=== PATIENT | male | born 1955 | race Caucasian/White ===

== ENCOUNTER 2016-11-30 12:18 | Inpatient (IN) | payer OTHER ==
[2016-11-30 14:10] VITALS: BMI 21.8
--- NOTE | 2016-11-30 14:46 | HP ---
CIWA Score - CIWA Score Nausea/Vomitin Muscle Tremors: 3 Anxiety: 3 Agitation: 3 Paroxysmal Sweats: 2 Orientation: 0-Oriented Tacttile Disturbances: 2-Mild Itch/Numbness/Burn Auditory Disturbances: 2-Mild Harshness/Frighten Visual Disturbances: 2-Mild Sensitivity Headache: 2-Mild CIWA-Ar Total Score: 22 Admission ROS BHS - HPI Chief Complaint: i need help to stop drinking alcohol Allergies/Adverse Reactions: Allergies Allergy/AdvReac Type Severity Reaction Status Date / Time No Known Allergies Allergy Verified 11/30/16 14:10 History of Present Illness: this 61 years old male with alcohol dependence,seeking detox,last treatment 12/22 to 04/22/15 [facility] weight loss depression longest of sobriety 1 year basal cell carcinoma of scalp Exam Limitations: No Limitations - Ebola screening Have you traveled outside of the country in the last 21 days: No Have you had contact with anyone from an Ebola affected area: No Have you been sick,other than usual withdrawal symptoms: No Do you have a fever: No - Review of Systems Constitutional: Loss of Appetite, Malaise, Night Sweats, Changes in sleep, Weakness, Unintentional Wgt. Loss EENT: reports: Nose Congestion Respiratory: reports: No Symptoms reported Cardiac: reports: No Symptoms Reported GI: reports: Diarrhea, Nausea, Vomiting, Abdominal cramping : reports: No Symptoms Reported Musculoskeletal: reports: Back Pain, Muscle Pain Integumentary: reports: Dryness Neuro: reports: Headache, Tremors Endocrine: reports: No Symptoms Reported Hematology: reports: No Symptoms Reported Psychiatric: reports: No Sypmtoms Reported, Judgement Intact, Mood/Affect Appropiate, Orientated x3, Depressed Patient History - Patient Medical History Hx Anemia: No Hx Asthma: No Hx Chronic Obstructive Pulmonary Disease (COPD): No Hx Cancer: No Hx Cardiac Disorders: No Hx Congestive Heart Failure: No Hx Hypertension: No Hx Hypercholesterolemia: No Hx Pacemaker: No HX Cerebrovascular Accident: No Hx Seizures: No Hx Dementia: No Hx Diabetes: No Hx Gastrointestinal Disorders: No Hx Liver Disease: No Hx Genitourinary Disorders: No Hx Sexually Transmitted Disorders: No Hx Renal Disease (ESRD): No Hx Thyroid Disease: No Hx Human Immunodeficiency Virus (HIV): Yes (since 2001) Hx Hepatitis C: No Hx Depression: Yes (no med) Hx Suicide Attempt: No Hx Bipolar Disorder: No Hx Schizophrenia: No Other Medical History: no sucidal,no homicidal,basal cell carcinoma of scalp in 2015 follow dermat - Patient Surgical History Past Surgical History: Yes Hx Neurologic Surgery: No Hx Cataract Extraction: No Hx Cardiac Surgery: No Hx Lung Surgery: No Hx Breast Surgery: No Hx Breast Biopsy: No Hx Abdominal Surgery: No Hx Appendectomy: No Hx Cholecystectomy: No Hx Genitourinary Surgery: No Hx Section: No Hx Orthopedic Surgery: Yes (fx of right femur in 03/22 [facility]) Other Surgical History: fx of right mandible in 2004 - PPD History Previous Implant?: Yes Documented Results: Negative w/o proof Implanted On Prior [facility] Admission?: No Date: 04/19/15 PPD to be Administered?: Yes - Smoking Cessation Smoking history: Never smoked Have you smoked in the past 12 months: No Hx Chewing Tobacco Use: No Initiated information on smoking cessation: No - Substance & Tx. History Hx Alcohol Use: Yes Hx Substance Use: No Substance Use Type: Alcohol Hx Substance Use Treatment: Yes ([facility] 04/17/15 to 04/22/15) - Substances Abused Alcohol Route: Oral Frequency: Daily Amount used: 3 PINTS VODKA Age of first use: 14 Date of Last Use: 11/30/16 Family Disease History - Family Disease History Family Disease History: Other: Father (alcohol), Mother (alcohol) Admission Physical Exam S - Vital Signs Vital Signs: Vital Signs - 24 hr 11/30/16 14:00 Temperature 96.0 F L Pulse Rate 84 Respiratory 18 Rate Blood Pressure 131/73 - Physical General Appearance: Yes: Moderate Distress, Tremorous, Irritable, Sweating, Anxious HEENTM: Yes: Normal ENT Inspection, CHRIS, Pharynx Normal Respiratory: Yes: Lungs Clear, Normal Breath Sounds, No Respiratory Distress Neck: Yes: Within Normal Limits, Supple, Trachea in good position Breast: Yes: Within Normal Limits Cardiology: Yes: Within Normal Limits, Regular Rhythm, Regular Rate, S1, S2 Abdominal: Yes: Within Normal Limits, Normal Bowel Sounds, Non Tender, Flat, Soft Genitourinary: Yes: Within Normal Limits Back: Yes: Normal Inspection, Muscle Spasm Musculoskeletal: Yes: Back pain, Muscle Pain Extremities: Yes: Normal Range of Motion, Tremors Neurological: Yes: Within Normal Limits, Alert, Motor Strength 5/5 Integumentary: Yes: Dry Lymphatic: Yes: Within Normal Limits - Diagnostic (1) Alcohol dependence with uncomplicated withdrawal Current Visit: Yes Status: Acute (2) Depression Current Visit: No Status: Acute (3) Syncope Current Visit: No Status: Acute (4) Weight loss Current Visit: Yes Status: Chronic (5) Basal cell carcinoma of scalp Current Visit: No Status: Chronic (6) H/O basal cell carcinoma excision Current Visit: Yes Status: Chronic (7) HIV (human immunodeficiency virus infection) Current Visit: Yes Status: Chronic Cleared for Admission [facility] - Detox or Rehab [facility] Level of Care: Medically Managed Detox Regimen/Protocol: Librium [facility] Breath Alcohol Content Breath Alcohol Content: 0.092 Urine Drug Screen - Results Drug Screen Negative: No Urine Drug Screen Results: BZO-Benzodiazepines
[2016-11-30] MEDS ORDERED: P-EPHED 60MG/TRIPROLIDI 2.5MG TABLET PO PRN (15:06)
[2016-11-30] MEDS ORDERED: MENTHOL/PHENOL 1 EACH UD MM PRN (15:06)
[2016-11-30] MEDS ORDERED: ACETAMINOPHEN 325 MG TABLET (FP) PO PRN (15:06)
[2016-11-30] MEDS ORDERED: MAGNESIUM HYDROX 2400MG/30ML ORAL SUSPENSION 30 ML CUP PO PRN (15:06)
[2016-11-30] MEDS ORDERED: MAG HYDROX/AL HYDROX/SIMETH 30 ML UNIT-DOSE CUP PO PRN (15:06)
[2016-11-30] MEDS ORDERED: guaiFENesin/D-METHORPHAN HB 10 ML UNIT-DOSE CUPS PO PRN (15:06)
[2016-11-30] MEDS ORDERED: MAGNESIUM CITRATE 300 ML BOTTLE PO PRN (15:06)
[2016-11-30] MEDS ORDERED: LOPERAMIDE HCL 2 MG CAPSULE PO PRN (15:06)
[2016-11-30] MEDS ORDERED: IBUPROFEN 400 MG TABLET (FP) PO PRN (15:06)
[2016-11-30] MEDS ORDERED: chlordiazePOXIDE HCL 25 MG CAPSULE PO ONE (15:48)
[2016-11-30] MEDS: chlordiazePOXIDE HCL 25 MG CAPSULE PO SCH ×2 (17:25→22:15)
[2016-11-30] MEDS ORDERED: ONDANSETRON *ODT* 4 MG TABLET SL ONE (19:33)
[2016-11-30] MEDS: THIAMINE HCL 100 MG TABLET (FP) PO SCH (22:15)
[2016-11-30] MEDS: diphenhydrAMINE HCL 50 MG CAPSULE PO PRN (22:15)
[2016-11-30 22:28] LABS: URINE APPEARANCE SLCLOUDY; URINE BILIRUBIN NEGATIVE (NEGATIVE); URINE BLOOD NEGATIVE (NEGATIVE); URINE COLOR AMBER; URINE GLUCOSE (UA) NEGATIVE (NEGATIVE); URINE KETONE NEGATIVE (NEGATIVE); URINE NITRITE NEGATIVE (NEGATIVE); URINE PROTEIN 2+ (NEGATIVE); URINE UROBILINOGEN 4.0 E.U/dl mg/dL (0.2-1.0)
[2016-11-30 23:50] LABS: URINE BACTERIA FEW /hpf (NONE SEEN); URINE MUCUS 3+
[2016-12-01] MEDS: chlordiazePOXIDE HCL 25 MG CAPSULE PO SCH ×4 (06:08→22:18)
[2016-12-01 10:09] LABS: MCH 34.7 pg (25.7-33.7); MCHC 32.8 g/dl (32.0-35.9); MEAN CELL VOLUME 105.7 fl (80-96); MEAN PLT VOLUME 9.9 fl (7.5-11.1); PLATELET COUNT 96 K/MM3 (134-434); RDW 13.1 % (11.9-15.9); WHITE BLOOD COUNT 3.6 K/mm3 (4.0-10.0)
[2016-12-01 10:30] LABS: URINE LEUK ESTERASE Negative (NEGATIVE)
[2016-12-01] MEDS: RITONAVIR 100 MG TABLET PO SCH (10:31)
[2016-12-01] MEDS: PRENATAL VITAMINS W/ FOLIC ACID TABLET (FP) PO SCH (10:31)
[2016-12-01] MEDS: DARUNAVIR ETHANOLATE 800 MG TAB PO SCH (10:31)
[2016-12-01] MEDS: DAPSONE 100 MG TABLET PO SCH (10:31)
[2016-12-01] MEDS: EMTRICITABINE 200MG/TENOFOVIR 300MG PO SCH (10:32)
--- NOTE | 2016-12-01 10:46 | EKG ---
Test Reason : Blood Pressure : / mmHG Vent. Rate : 075 BPM Atrial Rate : 075 BPM P-R Int : 156 ms QRS Dur : 100 ms QT Int : 406 ms P-R-T Axes : 078 081 075 degrees QTc Int : 453 ms NORMAL SINUS RHYTHM NORMAL ECG NO PREVIOUS ECGS AVAILABLE Confirmed by ANDRES MARROQUIN MD ([id number]) on 12/01/2016 10:45:37 AM Referred By: Confirmed By:ANDRES MARROQUIN MD
--- NOTE | 2016-12-01 10:59 | PN ---
[facility] CIWA - CIWA Score Nausea/Vomitin-No Nausea/No Vomiting Muscle Tremors: 4-Moderate,w/Arms Extend Anxiety: 4-Mod. Anxious/Guarded Agitation: 4-Moderately Restless Paroxysmal Sweats: 1-Minimal Palms Moist Orientation: 0-Oriented Tacttile Disturbances: 3-Moderate Itch/Numb/Burn Auditory Disturbances: 0-None Visual Disturbances: 0-None Headache: 0-None Present CIWA-Ar Total Score: 16 BHS Progress Note (SOAP) Subjective: ANXIETY,SWEATS,TREMORS,INTERMITTENT SLEEP. Objective: 12/01/16 10:59 Vital Signs Temperature 97.8 F 12/01/16 09:20 Pulse Rate 63 12/01/16 09:20 Respiratory Rate 18 12/01/16 09:20 Blood Pressure 123/80 12/01/16 09:20 O2 Sat by Pulse Oximetry (%) Laboratory Last Values WBC 3.6 K/mm3 (4.0-10.0) L 12/01/16 06:00 RBC 3.74 M/mm3 (4.00-5.60) L 12/01/16 06:00 Hgb 13.0 GM/dL (11.7-16.9) 12/01/16 06:00 Hct 39.5 % (35.4-49) 12/01/16 06:00 MCV 105.7 fl (80-96) H 12/01/16 06:00 MCH 34.7 pg (25.7-33.7) H 12/01/16 06:00 MCHC 32.8 g/dl (32.0-35.9) 12/01/16 06:00 RDW 13.1 % (11.9-15.9) 12/01/16 06:00 Plt Count 96 K/MM3 (134-434) L D 12/01/16 06:00 MPV 9.9 fl (7.5-11.1) D 12/01/16 06:00 Sodium 140 mmol/L (136-145) 12/01/16 06:00 Potassium 3.6 mmol/L (3.5-5.1) 12/01/16 06:00 Chloride 102 mmol/L (98-107) 12/01/16 06:00 Urine Color [place] 11/30/16 22:10 Urine Appearance Slcloudy 11/30/16 22:10 Urine pH 7.0 (5.0-8.0) 11/30/16 22:10 Ur Specific [place] 1.020 (1.005-1.025) 11/30/16 22:10 Urine Protein 2+ (NEGATIVE) H 11/30/16 22:10 Urine Glucose (UA) Negative (NEGATIVE) 11/30/16 22:10 Urine Ketones Negative (NEGATIVE) 11/30/16 22:10 Urine Blood Negative (NEGATIVE) 11/30/16 22:10 Urine Nitrite Negative (NEGATIVE) 11/30/16 22:10 Urine Bilirubin Negative (NEGATIVE) 11/30/16 22:10 Urine Urobilinogen 4.0 e.u/dl mg/dL (0.2-1.0) 11/30/16 22:10 Ur Leukocyte Esterase Negative (NEGATIVE) 11/30/16 22:10 Urine RBC 3-6 /hpf (0-3) 11/30/16 22:10 Urine Bacteria Few /hpf (NONE SEEN) 11/30/16 22:10 Urine Mucus 3+ 11/30/16 22:10 Assessment: 12/01/16 10:59 WITHDRAWAL SX Plan: CONTINUE DETOX
--- NOTE | 2016-12-01 11:09 | CONSULT ---
[facility] Psychiatric Consult - Data Date of interview: 12/01/16 Admission source: [facility] Identifying data: This is 61 years old male with history of psychiatric hospitalizations, history of BD-2, intoxicated with Alcohol and Benzodiazepins Substance Abuse History: Urine Drug Screen Results: BZO-Benzodiazepines- Smoking Cessation. Smoking history: Never smoked. Have you smoked in the past 12 months: No. Hx Chewing Tobacco Use: No. Initiated information on smoking cessation: No. - Substance & Tx. History. Hx Alcohol Use: Yes. Hx Substance Use: No. Substance Use Type: Alcohol. Hx Substance Use Treatment: Yes ([facility] to 04/22/15). - Substances Abused. Alcohol. Route: Oral. Frequency : Daily. Amount used: 3 PINTS VODKA. Age of first use: 14. Date of Last Use: 11/30/16 Medical History: Syncope history, Weight loss history, HIV+, Basal Carcinoma History Psychiatric History: Patient reports history of depression and anxiety, reports recenmt psychiatric admission for safty on 2015 at [facility], reports no medications taking prior to admission Physical/Sexual Abuse/Trauma History: Denies Additional Comment: Urine Drug Screen Results: BZO-Benzodiazepines. Observation. Detox Unit Care Protocol Mental Status Exam - Mental Status Exam Alert and Oriented to: Person Cognitive Function: Fair Mood: Sad Affect: Flat Patient Behavior: Sedated Speech Pattern: Delayed Voice Loudness: Mildly Soft/Quiet Thought Process: Circumstantial Thought Disorder: Being Controlled Hallucinations: Denies Suicidal Ideation: Denies Homicidal Ideation: Denies Insight/Judgement: Fair Sleep: Difficulty falling asleep Appetite: Weight loss Muscle strength/Tone: Mild Hypotonicity Gait/Station: Shuffling Additional Comments: Observation. 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 Detox Unit Care Protocol
[2016-12-01 11:12] LABS: ALBUMIN 3.9 g/dl (3.4-5.0); ALK PHOS 105 U/L (45-117); ANION GAP 11 (8-16); BILIRUBIN,TOTAL 0.6 mg/dL (0.2-1.0); CALCIUM 8.4 mg/dL (8.5-10.1); CO2 27 mmol/L (21-32); CREATININE 0.7 mg/dL (0.7-1.3); GLUCOSE,RANDOM 144 mg/dL (74-106); SGOT/AST 58 U/L (15-37); SGPT/ALT 58 U/L (12-78); TOT PROT 7.4 g/dl (6.4-8.2)
[2016-12-01] MEDS ORDERED: FLU VACCINE QUAD 60 MCG/0.5 ML (MDV 17-18) IM ONE (12:00)
[2016-12-01] MEDS: THIAMINE HCL 100 MG TABLET (FP) PO SCH (22:18)
[2016-12-01] MEDS: diphenhydrAMINE HCL 50 MG CAPSULE PO PRN (22:19)
[2016-12-02] MEDS: chlordiazePOXIDE HCL 25 MG CAPSULE PO SCH ×2 (05:44→10:32)
[2016-12-02] MEDS: DAPSONE 100 MG TABLET PO SCH (10:32)
[2016-12-02] MEDS: DARUNAVIR ETHANOLATE 800 MG TAB PO SCH (10:32)
[2016-12-02] MEDS: EMTRICITABINE 200MG/TENOFOVIR 300MG PO SCH (10:33)
[2016-12-02] MEDS: RITONAVIR 100 MG TABLET PO SCH (10:33)
[2016-12-02] MEDS: PRENATAL VITAMINS W/ FOLIC ACID TABLET (FP) PO SCH (10:33)
--- NOTE | 2016-12-02 12:17 | PN ---
S CIWA - CIWA Score Nausea/Vomitin Muscle Tremors: 3 Anxiety: 3 Agitation: 2 Paroxysmal Sweats: 1-Minimal Palms Moist Orientation: 0-Oriented Tacttile Disturbances: 1-Very Mild Itch/Numbness Auditory Disturbances: 0-None Visual Disturbances: 0-None Headache: 2-Mild CIWA-Ar Total Score: 15 S Progress Note (SOAP) Subjective: nausea, sweats, interrupted sleep, anxiety, tremors Objective: 12/02/16 12:15 Vital Signs - 24 hr 12/01/16 12/01/16 12/01/16 14:10 17:39 22:20 Temperature 97.0 F L 96.6 F L 97.3 F L Pulse Rate 71 77 77 Respiratory 20 20 18 Rate Blood Pressure 118/77 113/69 117/75 12/02/16 12/02/16 12/02/16 03:40 06:13 10:00 Temperature 96.4 F L 98.4 F Pulse Rate 71 92 H Respiratory 18 18 18 Rate Blood Pressure 100/64 115/77 Laboratory Tests 11/30/16 12/01/16 12/01/16 22:10 06:00 06:00 WBC 3.6 L RBC 3.74 L Hgb 13.0 Hct 39.5 MCV 105.7 H MCH 34.7 H MCHC 32.8 RDW 13.1 Plt Count 96 L D MPV 9.9 D Sodium 140 Potassium 3.6 Chloride 102 Carbon Dioxide 27 Anion Gap 11 BUN 15 D Creatinine 0.7 Creat Clearance w eGFR > 60 Random Glucose 144 H D Calcium 8.4 L Total Bilirubin 0.6 D AST 58 H ALT 58 Alkaline Phosphatase 105 Total Protein 7.4 Albumin 3.9 Urine Color [place] Urine Appearance Slcloudy Urine pH 7.0 Ur Specific [place] 1.020 Urine Protein 2+ H Urine Glucose (UA) Negative Urine Ketones Negative Urine Blood Negative Urine Nitrite Negative Urine Bilirubin Negative Urine Urobilinogen 4.0 e.u/dl Ur Leukocyte Esterase Negative Urine RBC 3-6 Urine Bacteria Few Urine Mucus 3+ RPR Titer 12/01/16 06:00 WBC RBC Hgb Hct MCV MCH MCHC RDW Plt Count MPV Sodium Potassium Chloride Carbon Dioxide Anion Gap BUN Creatinine Creat Clearance w eGFR Random Glucose Calcium Total Bilirubin AST ALT Alkaline Phosphatase Total Protein Albumin Urine Color Urine Appearance Urine pH Ur Specific [place] Urine Protein Urine Glucose (UA) Urine Ketones Urine Blood Urine Nitrite Urine Bilirubin Urine Urobilinogen Ur Leukocyte Esterase Urine RBC Urine Bacteria Urine Mucus RPR Titer Nonreactive Assessment: 12/02/16 12:17 withdrawal sx Plan: cont detox, fluids, encourage ambualtion
[2016-12-02] MEDS: chlordiazePOXIDE HCL 25 MG CAPSULE PO PRN (15:26)
[2016-12-02] MEDS: chlordiazePOXIDE 5 MG CAPSULE PO SCH ×2 (17:31→22:08)
[2016-12-02] MEDS: diphenhydrAMINE HCL 50 MG CAPSULE PO PRN (22:08)
[2016-12-02] MEDS: THIAMINE HCL 100 MG TABLET (FP) PO SCH (22:08)
[2016-12-03] MEDS: chlordiazePOXIDE 5 MG CAPSULE PO SCH ×2 (05:48→10:30)
[2016-12-03] MEDS: DAPSONE 100 MG TABLET PO SCH (10:30)
[2016-12-03] MEDS: PRENATAL VITAMINS W/ FOLIC ACID TABLET (FP) PO SCH (10:30)
[2016-12-03] MEDS: DARUNAVIR ETHANOLATE 800 MG TAB PO SCH (10:30)
[2016-12-03] MEDS: RITONAVIR 100 MG TABLET PO SCH (10:30)
[2016-12-03] MEDS: EMTRICITABINE 200MG/TENOFOVIR 300MG PO SCH (10:30)
--- NOTE | 2016-12-03 13:19 | PN ---
BHS Progress Note (SOAP) Subjective: Tremors, Fatigue, Sweating. Objective: PT. A & O X 3, OBSERVED AMBULATING ON UNIT. NO ACUTE DISTRESS. 12/03/16 13:14 Vital Signs Temperature 97.6 F 12/03/16 09:43 Pulse Rate 86 12/03/16 09:43 Respiratory Rate 18 12/03/16 09:43 Blood Pressure 113/77 12/03/16 09:43 O2 Sat by Pulse Oximetry (%) Laboratory Tests 11/30/16 12/01/16 12/01/16 22:10 06:00 06:00 WBC 3.6 L RBC 3.74 L Hgb 13.0 Hct 39.5 MCV 105.7 H MCH 34.7 H MCHC 32.8 RDW 13.1 Plt Count 96 L D MPV 9.9 D Sodium 140 Potassium 3.6 Chloride 102 Carbon Dioxide 27 Anion Gap 11 BUN 15 D Creatinine 0.7 Creat Clearance w eGFR > 60 Random Glucose 144 H D Calcium 8.4 L Total Bilirubin 0.6 D AST 58 H ALT 58 Alkaline Phosphatase 105 Total Protein 7.4 Albumin 3.9 Urine Color [place] Urine Appearance Slcloudy Urine pH 7.0 Ur Specific [place] 1.020 Urine Protein 2+ H Urine Glucose (UA) Negative Urine Ketones Negative Urine Blood Negative Urine Nitrite Negative Urine Bilirubin Negative Urine Urobilinogen 4.0 e.u/dl Ur Leukocyte Esterase Negative Urine RBC 3-6 Urine Bacteria Few Urine Mucus 3+ RPR Titer 12/01/16 06:00 WBC RBC Hgb Hct MCV MCH MCHC RDW Plt Count MPV Sodium Potassium Chloride Carbon Dioxide Anion Gap BUN Creatinine Creat Clearance w eGFR Random Glucose Calcium Total Bilirubin AST ALT Alkaline Phosphatase Total Protein Albumin Urine Color Urine Appearance Urine pH Ur Specific [place] Urine Protein Urine Glucose (UA) Urine Ketones Urine Blood Urine Nitrite Urine Bilirubin Urine Urobilinogen Ur Leukocyte Esterase Urine RBC Urine Bacteria Urine Mucus RPR Titer Nonreactive LABS NOTED. Assessment: 12/03/16 13:15 WITHDRAWAL SYMPTOMS. Plan: CONTINUE DETOX. BGM ACBK FOR ELEVATED ADMISSION RANDOM GLUCOSE LEVEL. INCREASE DAILY PO FLUID INTAKE.
[2016-12-03] MEDS: chlordiazePOXIDE HCL 25 MG CAPSULE PO PRN (14:11)
[2016-12-03] MEDS: chlordiazePOXIDE HCL 10 MG CAPSULE PO SCH ×2 (17:41→22:24)
[2016-12-03] MEDS: THIAMINE HCL 100 MG TABLET (FP) PO SCH (22:24)
[2016-12-03] MEDS: diphenhydrAMINE HCL 50 MG CAPSULE PO PRN (22:25)
[2016-12-04] MEDS: chlordiazePOXIDE HCL 10 MG CAPSULE PO SCH ×2 (06:00→10:25)
[2016-12-04] MEDS: DARUNAVIR ETHANOLATE 800 MG TAB PO SCH (10:25)
[2016-12-04] MEDS: RITONAVIR 100 MG TABLET PO SCH (10:25)
[2016-12-04] MEDS: DAPSONE 100 MG TABLET PO SCH (10:26)
[2016-12-04] MEDS: PRENATAL VITAMINS W/ FOLIC ACID TABLET (FP) PO SCH (10:26)
[2016-12-04] MEDS: EMTRICITABINE 200MG/TENOFOVIR 300MG PO SCH (10:26)
[2016-12-04] MEDS: hydrOXYzine PAMOATE 25 MG CAPSULE (FP) PO PRN ×3 (12:47→22:22)
--- NOTE | 2016-12-04 17:27 | PN ---
BHS Progress Note (SOAP) Subjective: Sweating, anxious, restless, nausea Objective: 12/04/16 17:24 Last Vital Signs Temp Pulse Resp BP Pulse Ox 97.7 F 122 H 18 117/67 12/04/16 13:00 12/04/16 13:00 12/04/16 13:00 12/04/16 13:00 Tachycardia at 122 Laboratory Tests 11/30/16 12/01/16 12/01/16 22:10 06:00 06:00 WBC 3.6 L RBC 3.74 L Hgb 13.0 Hct 39.5 MCV 105.7 H MCH 34.7 H MCHC 32.8 RDW 13.1 Plt Count 96 L D MPV 9.9 D Sodium 140 Potassium 3.6 Chloride 102 Carbon Dioxide 27 Anion Gap 11 BUN 15 D Creatinine 0.7 Creat Clearance w eGFR > 60 POC Glucometer Random Glucose 144 H D Calcium 8.4 L Total Bilirubin 0.6 D AST 58 H ALT 58 Alkaline Phosphatase 105 Total Protein 7.4 Albumin 3.9 Urine Color [place] Urine Appearance Slcloudy Urine pH 7.0 Ur Specific [place] 1.020 Urine Protein 2+ H Urine Glucose (UA) Negative Urine Ketones Negative Urine Blood Negative Urine Nitrite Negative Urine Bilirubin Negative Urine Urobilinogen 4.0 e.u/dl Ur Leukocyte Esterase Negative Urine RBC 3-6 Urine Bacteria Few Urine Mucus 3+ RPR Titer 12/01/16 12/04/16 06:00 06:02 WBC RBC Hgb Hct MCV MCH MCHC RDW Plt Count MPV Sodium Potassium Chloride Carbon Dioxide Anion Gap BUN Creatinine Creat Clearance w eGFR POC Glucometer 97 Random Glucose Calcium Total Bilirubin AST ALT Alkaline Phosphatase Total Protein Albumin Urine Color Urine Appearance Urine pH Ur Specific [place] Urine Protein Urine Glucose (UA) Urine Ketones Urine Blood Urine Nitrite Urine Bilirubin Urine Urobilinogen Ur Leukocyte Esterase Urine RBC Urine Bacteria Urine Mucus RPR Titer Nonreactive Labs noted: UA shows proteinuria and microscopic hematuria Assessment: 12/04/16 17:25 Withdrawal symptoms Noted with proteinuria and microscopic hematuria Plan: Continue detox Proteinuria and microscopic hematuria: encouraged to drink lots of water, repeat UA
[2016-12-04 19:15] LABS: URINE APPEARANCE CLEAR; URINE BILIRUBIN NEGATIVE (NEGATIVE); URINE BLOOD NEGATIVE (NEGATIVE); URINE COLOR YELLOW; URINE GLUCOSE (UA) NEGATIVE (NEGATIVE); URINE KETONE NEGATIVE (NEGATIVE); URINE NITRITE NEGATIVE (NEGATIVE); URINE PROTEIN NEGATIVE (NEGATIVE); URINE UROBILINOGEN NEGATIVE mg/dL (0.2-1.0)
[2016-12-04] MEDS: THIAMINE HCL 100 MG TABLET (FP) PO SCH (22:22)
[2016-12-04 23:21] LABS: URINE LEUK ESTERASE Negative (NEGATIVE)
[2016-12-05] MEDS: RITONAVIR 100 MG TABLET PO SCH (08:53)
[2016-12-05] MEDS: DAPSONE 100 MG TABLET PO SCH (08:53)
[2016-12-05] MEDS: PRENATAL VITAMINS W/ FOLIC ACID TABLET (FP) PO SCH (08:53)
[2016-12-05] MEDS: DARUNAVIR ETHANOLATE 800 MG TAB PO SCH (08:54)
[2016-12-05] MEDS: EMTRICITABINE 200MG/TENOFOVIR 300MG PO SCH (08:56)
--- NOTE | 2016-12-05 09:02 | DS ---
[facility] Detox Discharge Summary Admission Date: 11/30/16 Discharge Date: 12/05/16 - History Present History: Alcohol Dependence Additional Comments: DETOX COMPLETED. ALERT O X 3. NAD. PT WILL FOLLOW UP WITH PCP/PMD DR ARCHANA JOHN AT [address] FOR MEDICAL MANAGEMENT OF COMORBID CONDITIONS. Pertinent Past History: HIV(+) HX BASAL CELL CARCINOMA EXCISION - Physical Exam Results Vital Signs: Vital Signs Temperature 96.4 F L 12/05/16 07:13 Pulse Rate 73 12/05/16 07:13 Respiratory Rate 20 12/05/16 07:13 Blood Pressure 107/67 12/05/16 07:13 O2 Sat by Pulse Oximetry (%) Pertinent Admission Physical Exam Findings: WITHDRAWAL SX Laboratory Last Values WBC 3.6 K/mm3 (4.0-10.0) L 12/01/16 06:00 RBC 3.74 M/mm3 (4.00-5.60) L 12/01/16 06:00 Hgb 13.0 GM/dL (11.7-16.9) 12/01/16 06:00 Hct 39.5 % (35.4-49) 12/01/16 06:00 MCV 105.7 fl (80-96) H 12/01/16 06:00 MCH 34.7 pg (25.7-33.7) H 12/01/16 06:00 MCHC 32.8 g/dl (32.0-35.9) 12/01/16 06:00 RDW 13.1 % (11.9-15.9) 12/01/16 06:00 Plt Count 96 K/MM3 (134-434) L D 12/01/16 06:00 MPV 9.9 fl (7.5-11.1) D 12/01/16 06:00 Sodium 140 mmol/L (136-145) 12/01/16 06:00 Potassium 3.6 mmol/L (3.5-5.1) 12/01/16 06:00 Chloride 102 mmol/L (98-107) 12/01/16 06:00 Carbon Dioxide 27 mmol/L (21-32) 12/01/16 06:00 Anion Gap 11 (8-16) 12/01/16 06:00 BUN 15 mg/dL (7-18) D 12/01/16 06:00 Creatinine 0.7 mg/dL (0.7-1.3) 12/01/16 06:00 Creat Clearance w eGFR > 60 (>60) 12/01/16 06:00 POC Glucometer 90 UNITS (()) 12/05/16 05:15 Random Glucose 144 mg/dL (74-106) H D 12/01/16 06:00 Calcium 8.4 mg/dL (8.5-10.1) L 12/01/16 06:00 Total Bilirubin 0.6 mg/dL (0.2-1.0) D 12/01/16 06:00 AST 58 U/L (15-37) H 12/01/16 06:00 ALT 58 U/L (12-78) 12/01/16 06:00 Alkaline Phosphatase 105 U/L (45-117) 12/01/16 06:00 Total Protein 7.4 g/dl (6.4-8.2) 12/01/16 06:00 Albumin 3.9 g/dl (3.4-5.0) 12/01/16 06:00 Urine Color Yellow 12/04/16 17:44 Urine Appearance Clear 12/04/16 17:44 Urine pH 6.0 (5.0-8.0) 12/04/16 17:44 Ur Specific [place] 1.020 (1.005-1.025) 12/04/16 17:44 Urine Protein Negative (NEGATIVE) 12/04/16 17:44 Urine Glucose (UA) Negative (NEGATIVE) 12/04/16 17:44 Urine Ketones Negative (NEGATIVE) 12/04/16 17:44 Urine Blood Negative (NEGATIVE) 12/04/16 17:44 Urine Nitrite Negative (NEGATIVE) 12/04/16 17:44 Urine Bilirubin Negative (NEGATIVE) 12/04/16 17:44 Urine Urobilinogen Negative mg/dL (0.2-1.0) 12/04/16 17:44 Ur Leukocyte Esterase Negative (NEGATIVE) 12/04/16 17:44 Urine RBC 3-6 /hpf (0-3) 11/30/16 22:10 Urine Bacteria Few /hpf (NONE SEEN) 11/30/16 22:10 Urine Mucus 3+ 11/30/16 22:10 RPR Titer Nonreactive (NONREACTIVE) 12/01/16 06:00 - Treatment Hospital Course: Detox Protocol Followed, Detoxed Safely, Responded well, Discharged Condition Good - Medication Discharge Medications: Ambulatory Orders Ritonavir [Norvir] 100 mg PO DAILY 05/21/14 Dapsone - 100 mg PO DAILY #30 tablet 06/12/14 Darunavir Ethanolate [Prezista -] 800 mg PO DAILY #30 tablet 06/12/14 Emtricitabine/Tenofovir [Truvada -] 1 tab PO DAILY #30 tablet 06/12/14 - Diagnosis (1) Alcohol dependence with uncomplicated withdrawal Current Visit: Yes Status: Acute (2) Weight loss Current Visit: Yes Status: Chronic (3) H/O basal cell carcinoma excision Current Visit: Yes Status: Chronic (4) HIV (human immunodeficiency virus infection) Current Visit: Yes Status: Chronic - AMA Did Patient Leave Against Medical Advice: No
[2016-12-05 09:31] VITALS: BP 118/90; PULSE 111; TEMP 96.7
== END 2016-12-05 09:15 | disposition home or self-care (01) | DRG 897 ==
LOC: YASAS 12:18 → Y3N 15:22
PROVIDERS: ADMIT Internal Medicine; ATTEND Internal Medicine
PROC: HZ2ZZZZ Detoxification Services for Substance Abuse Treatment (ICD-10-PCS; principal; 2016-11-30)
DX: F10.230 Alcohol dependence with withdrawal, uncomplicated (principal); F31.81 Bipolar II disorder; F13.10 Sedative, hypnotic or anxiolytic abuse, uncomplicated; F10.24 Alcohol dependence with alcohol-induced mood disorder; F19.24 Other psychoactive substance dependence with psychoactive substance-induced mood disorder; Z21 Asymptomatic human immunodeficiency virus [HIV] infection status; R63.4 Abnormal weight loss; Z68.21 Body mass index [BMI] 21.0-21.9, adult; Z85.828 Personal history of other malignant neoplasm of skin
CPT/HCPCS: 36415; 80053; 81003; 81015; 85027; 86593; 93005; 93010

== ENCOUNTER 2019-01-27 11:02 | Inpatient (IN) | payer OTHER ==
--- NOTE | 2019-01-27 13:35 | HP ---
CIWA Score Nausea/Vomitin Muscle Tremors: 3 Anxiety: 3 Agitation: 3 Paroxysmal Sweats: 1-Minimal Palms Moist Orientation: 0-Oriented Tacttile Disturbances: 1-Very Mild Itch/Numbness Auditory Disturbances: 0-None Visual Disturbances: 0-None Headache: 2-Mild CIWA-Ar Total Score: 16 - Admission Criteria OASAS Guidelines: Admission for Medically Managed Detox: Requires at least one of the followin. CIWA greater than 12 2. Seizures within the past 24 hours 3. Delirium tremens within the past 24 hours 4. Hallucinations within the past 24 hours 5. Acute intervention needed for co occurring medical disorder 6. Acute intervention needed for co occurring psychiatric disorder 7. Severe withdrawal that cannot be handled at a lower level of care (continued vomiting, continued diarrhea, abnormal vital signs) requiring intravenous medication and/or fluids 8. Admitting History and Physical - Admission Chief Complaint: i need help to stop drinking alcohol History of Present Illness: this 63 years old male with alcohol dependence,seeking detox,withdrawal symptom hiv since 1999 denied seizure denied syncope last detox 2017,unknown facility weight loss History Source: Patient - Past Medical History Infectious Disease: Yes: HIV (since 1999) Psych: Yes: Anxiety, Depression - Past Surgical History Additional Past Surgical History: fx of right femur in 2013 fx of right mandible in 2003 - Smoking History Smoking history: Never smoked Have you smoked in the past 12 months: No - Alcohol/Substance Use Hx Alcohol Use: Yes - Social History Usual Living Arrangement: Yes: Alone ADL: Independent Occupation: retired History of Recent Travel: Yes Admission ROS [facility] Chief Complaint: i need help to stop drinking alcohol Allergies/Adverse Reactions: Allergies Allergy/AdvReac Type Severity Reaction Status Date / Time No Known Allergies Allergy Verified 01/27/19 12:11 History of Present Illness: this 7 years old male with alcohol dependence,seeking detox,withdrawal symptom sen in [place] last night syncope alcohol related no seizure hiv since 1999 fx of right femur in 2013 fx of mandible last detox 2017 ,did not recall the facility weight loss longest sobriety 2 years , Exam Limitations: No Limitations - Ebola screening Have you traveled outside of the country in the last 21 days: No (N) Have you had contact with anyone from an Ebola affected area: No Do you have a fever: No - Review of Systems Constitutional: Loss of Appetite, Malaise, Night Sweats, Changes in sleep, Weakness, Unintentional Wgt. Loss EENT: reports: Nose Congestion Respiratory: reports: No Symptoms reported Cardiac: reports: No Symptoms Reported GI: reports: Nausea, Poor Appetite, Abdominal cramping : reports: No Symptoms Reported Musculoskeletal: reports: Back Pain, Muscle Pain Integumentary: reports: Dryness Neuro: reports: Tremors Endocrine: reports: No Symptoms Reported Hematology: reports: No Symptoms Reported, Other (hiv) Psychiatric: reports: No Sypmtoms Reported, Judgement Intact, Mood/Affect Appropiate, Orientated x3, Anxious, Depressed Patient History - Patient Medical History Hx Anemia: No Hx Asthma: No Hx Chronic Obstructive Pulmonary Disease (COPD): No Hx Cancer: No Hx Cardiac Disorders: No Hx Congestive Heart Failure: No Hx Hypertension: No Hx Hypercholesterolemia: No Hx Pacemaker: No HX Cerebrovascular Accident: No Hx Seizures: No Hx Dementia: No Hx Diabetes: No Hx Gastrointestinal Disorders: No Hx Liver Disease: No Hx Genitourinary Disorders: No Hx Sexually Transmitted Disorders: No Hx Renal Disease (ESRD): No Hx Thyroid Disease: No Hx Human Immunodeficiency Virus (HIV): Yes (since 2001) Hx Hepatitis C: No Hx Depression: Yes (no med) Hx Suicide Attempt: No Hx Bipolar Disorder: No Hx Schizophrenia: No Other Medical History: no suicidal,no homicidal - Patient Surgical History Past Surgical History: Yes Hx Neurologic Surgery: No Hx Cataract Extraction: No Hx Cardiac Surgery: No Hx Lung Surgery: No Hx Breast Surgery: No Hx Breast Biopsy: No Hx Abdominal Surgery: No Hx Appendectomy: No Hx Cholecystectomy: No Hx Genitourinary Surgery: No Hx Section: No Hx Orthopedic Surgery: Yes (fx of right femur in 03/22 [facility]) Other Surgical History: fx of right mandible in 2004 - PPD History Previous Implant?: Yes Documented Results: Negative w/o proof Implanted On Prior R Admission?: Yes Date: 04/19/15 PPD to be Administered?: Yes - Smoking Cessation Smoking history: Never smoked Have you smoked in the past 12 months: No Hx Chewing Tobacco Use: No - Substance & Tx. History Hx Alcohol Use: Yes Hx Substance Use: Yes Substance Use Type: Alcohol Hx Substance Use Treatment: Yes (2018 unknown facility) - Substances abused Alcohol Substance route: Oral Frequency: Daily Amount used: 3 pints of vodka Age of first use: 59 Date of last use: 01/26/19 Admission Physical Exam [facility] - Vital Signs Vital Signs: Vital Signs - 24 hr 01/27/19 12:11 Temperature 97.2 F L Pulse Rate 84 Respiratory 18 Rate Blood Pressure 133/79 - Physical General Appearance: Yes: Moderate Distress, Tremorous, Irritable, Sweating, Anxious HEENTM: Yes: Normal ENT Inspection, CHRIS, Pharynx Normal Respiratory: Yes: Lungs Clear, Normal Breath Sounds, No Respiratory Distress Neck: Yes: Within Normal Limits, Supple, Trachea in good position Breast: Yes: Within Normal Limits Cardiology: Yes: Within Normal Limits, Regular Rate, S1, S2, Murmur Abdominal: Yes: Within Normal Limits, Normal Bowel Sounds, Non Tender, Soft Genitourinary: Yes: Within Normal Limits Back: Yes: Muscle Spasm Musculoskeletal: Yes: full range of Motion, Back pain, Muscle Pain Extremities: Yes: Tremors Neurological: Yes: ingot weigher II-XII NML intact, Fully Oriented, Alert, Motor Strength 5/5 Integumentary: Yes: Dry Lymphatic: Yes: Within Normal Limits - Diagnostic (1) Alcohol dependence with uncomplicated withdrawal Current Visit: No Status: Acute (2) Depression Current Visit: No Status: Acute (3) Syncope Current Visit: No Status: Acute (4) HIV (human immunodeficiency virus infection) Current Visit: No Status: Chronic (5) Weight loss Current Visit: No Status: Chronic (6) Dehydration Current Visit: Yes Status: Acute Cleared for Admission [facility] - Detox or Rehab [facility] Level of Care: Medically Managed Detox Regimen/Protocol: Librium Breathalyzer - Breathalyzer Breathalyzer: 0 Urine Drug Screen - Test Device Lot number: [id number] Expiration date: 09/05/20 - Control Is test valid?: Yes - Results Drug screen NEGATIVE: No Urine drug screen results: BZO-Benzodiazepines Inpatient Rehab Admission - Rehab Decision to Admit Inpatient rehab admission?: No
[2019-01-27] MEDS ORDERED: MAGNESIUM HYDROX 2400MG/30ML ORAL SUSPENSION 30 ML CUP PO PRN (13:49)
[2019-01-27] MEDS ORDERED: MAGNESIUM CITRATE 300 ML BOTTLE PO PRN (13:49)
[2019-01-27] MEDS ORDERED: ACETAMINOPHEN 325 MG TABLET (FP) PO PRN ×2 (13:49)
[2019-01-27] MEDS ORDERED: MAG HYDROX/AL HYDROX/SIMETH 30 ML UNIT-DOSE CUP PO PRN (13:49)
[2019-01-27] MEDS ORDERED: MENTHOL/PHENOL 1 EACH UD MM PRN (13:49)
[2019-01-27] MEDS ORDERED: IBUPROFEN 400 MG TABLET (FP) PO PRN (13:49)
[2019-01-27] MEDS ORDERED: METHOCARBAMOL 500 MG TABLET PO PRN (13:49)
[2019-01-27] MEDS ORDERED: chlordiazePOXIDE HCL 25 MG CAPSULE PO PRN (13:49)
[2019-01-27] MEDS ORDERED: BISMUTH SUBSALICYLATE 524 MG/30 ML UD PO PRN (13:49)
[2019-01-27] MEDS ORDERED: hydrOXYzine PAMOATE 25 MG CAPSULE (FP) PO PRN (13:49)
[2019-01-27] MEDS: chlordiazePOXIDE HCL 25 MG CAPSULE PO SCH ×2 (17:14→22:13)
[2019-01-27] MEDS: MELATONIN 5 MG TABLETS PO PRN (22:13)
[2019-01-27] MEDS: THIAMINE HCL 100 MG TABLET (FP) PO SCH (22:13)
[2019-01-28] MEDS: chlordiazePOXIDE HCL 25 MG CAPSULE PO SCH ×4 (05:22→22:12)
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
--- NOTE | 2019-01-28 09:52 | PN ---
S CIWA - CIWA Score Nausea/Vomitin-Mild Nausea/No Vomiting Muscle Tremors: 2 Anxiety: 2 Agitation: 2 Paroxysmal Sweats: 1-Minimal Palms Moist Orientation: 0-Oriented Tacttile Disturbances: 1-Very Mild Itch/Numbness Auditory Disturbances: 0-None Visual Disturbances: 0-None Headache: 1-Very Mild CIWA-Ar Total Score: 10 BHS Progress Note (SOAP) Subjective: alert,irritable,anxious,interrupted sleep,feel weak,tremor Objective: 01/28/19 09:50 Vital Signs Temperature 98.0 F 01/28/19 09:10 Pulse Rate 85 01/28/19 09:10 Respiratory Rate 16 01/28/19 09:10 Blood Pressure 113/86 01/28/19 09:10 O2 Sat by Pulse Oximetry (%) 01/28/19 09:50 labs pending Assessment: 01/28/19 09:51 withdrawal symptom Plan: continue detox librium regimen
[2019-01-28] MEDS: RITONAVIR 100 MG TABLET PO SCH (10:11)
[2019-01-28] MEDS: DARUNAVIR ETHANOLATE 800 MG TAB PO SCH (10:12)
[2019-01-28] MEDS: PRENATAL VITAMINS W/ FOLIC ACID TABLET (FP) PO SCH (10:12)
[2019-01-28] MEDS: EMTRICITABINE 200MG/TENOFOVIR 300MG PO SCH (10:12)
[2019-01-28 10:41] LABS: HEMATOCRIT 39.8 % (35.4-49); HEMOGLOBIN 13.4 GM/dL (11.7-16.9); MCH 34.7 pg (25.7-33.7); MCHC 33.6 g/dl (32.0-35.9); MEAN CELL VOLUME 103.2 fl (80-96); MEAN PLT VOLUME 10.6 fl (7.5-11.1); PLATELET COUNT 57 K/MM3 (134-434); RBC 3.86 M/mm3 (4.00-5.60); RDW 14.2 % (11.9-15.9); WHITE BLOOD COUNT 2.3 K/mm3 (4.0-10.0)
[2019-01-28 10:47] LABS: ALBUMIN 3.4 g/dl (3.4-5.0); BILIRUBIN,TOTAL 1.2 mg/dL (0.2-1); BLOOD UREA NITROGEN 6.1 mg/dL (7-18); CALCIUM 9.1 mg/dL (8.5-10.1); CREATININE 0.6 mg/dL (0.55-1.3); TOT PROT 6.8 g/dl (6.4-8.2)
[2019-01-28] MEDS ORDERED: FLU VACCINE QUAD 60 MCG/0.5 ML (MDV 19-20) IM ONE (12:00)
[2019-01-28] MEDS ORDERED: PNEUMOC 13-VAL CONJ-DIP CRM/PF 0.5 ML DISP.SYRIN IM ONE (12:00)
[2019-01-28] MEDS: THIAMINE HCL 100 MG TABLET (FP) PO SCH (22:12)
[2019-01-28] MEDS: MELATONIN 5 MG TABLETS PO PRN (22:41)
[2019-01-29] MEDS: chlordiazePOXIDE HCL 25 MG CAPSULE PO SCH ×4 (05:11→22:21)
--- NOTE | 2019-01-29 09:21 | PN ---
[facility] CIWA - CIWA Score Nausea/Vomitin-No Nausea/No Vomiting Muscle Tremors: 2 Anxiety: 3 Agitation: 0-Normal Activity Paroxysmal Sweats: 3 Orientation: 0-Oriented Tacttile Disturbances: 1-Very Mild Itch/Numbness Auditory Disturbances: 0-None Visual Disturbances: 0-None Headache: 1-Very Mild CIWA-Ar Total Score: 10 S Progress Note (SOAP) Subjective: c/o tiredness, anxiety, sweats, and headache. Objective: 01/29/19 09:22 Vital Signs 01/29/19 01/29/19 01/29/19 03:30 05:48 09:20 Temperature 98 F 98.8 F Pulse Rate 77 100 H Respiratory 18 16 16 Rate Blood Pressure 126/88 104/75 Laboratory Last Values WBC 2.3 K/mm3 (4.0-10.0) L 01/28/19 07:45 RBC 3.86 M/mm3 (4.00-5.60) L 01/28/19 07:45 Hgb 13.4 GM/dL (11.7-16.9) 01/28/19 07:45 Hct 39.8 % (35.4-49) 01/28/19 07:45 MCV 103.2 fl (80-96) H 01/28/19 07:45 MCH 34.7 pg (25.7-33.7) H 01/28/19 07:45 MCHC 33.6 g/dl (32.0-35.9) 01/28/19 07:45 RDW 14.2 % (11.9-15.9) 01/28/19 07:45 Plt Count 57 K/MM3 (134-434) L D 01/28/19 07:45 MPV 10.6 fl (7.5-11.1) 01/28/19 07:45 Sodium 135 mmol/L (136-145) L 01/28/19 07:45 Potassium 4.0 mmol/L (3.5-5.1) 01/28/19 07:45 Chloride 98 mmol/L (98-107) 01/28/19 07:45 Carbon Dioxide 31 mmol/L (21-32) 01/28/19 07:45 Anion Gap 6 MMOL/L (8-16) L 01/28/19 07:45 BUN 6.1 mg/dL (7-18) L 01/28/19 07:45 Creatinine 0.6 mg/dL (0.55-1.3) 01/28/19 07:45 Est GFR (CKD-EPI)AfAm 124.89 01/28/19 07:45 Est GFR (CKD-EPI)NonAf 107.76 01/28/19 07:45 Random Glucose 85 mg/dL (74-106) 01/28/19 07:45 Calcium 9.1 mg/dL (8.5-10.1) 01/28/19 07:45 Total Bilirubin 1.2 mg/dL (0.2-1) H 01/28/19 07:45 AST 74 U/L (15-37) H 01/28/19 07:45 ALT 46 U/L (13-61) 01/28/19 07:45 Alkaline Phosphatase 105 U/L (45-117) 01/28/19 07:45 Total Protein 6.8 g/dl (6.4-8.2) 01/28/19 07:45 Albumin 3.4 g/dl (3.4-5.0) 01/28/19 07:45 RPR Titer Nonreactive (NONREACTIVE) 01/28/19 07:45 Labs noted. Assessment: 01/29/19 09:22 AOX3, in no acute respiratory distress. Full ROM, ambulating in the unit. Withdrawal symptoms. Plan: continue detox.
[2019-01-29] MEDS: PRENATAL VITAMINS W/ FOLIC ACID TABLET (FP) PO SCH (10:10)
[2019-01-29] MEDS: EMTRICITABINE 200MG/TENOFOVIR 300MG PO SCH (10:10)
[2019-01-29] MEDS: DARUNAVIR ETHANOLATE 800 MG TAB PO SCH (10:10)
[2019-01-29] MEDS: RITONAVIR 100 MG TABLET PO SCH (10:10)
[2019-01-29] MEDS: GABAPENTIN 300 MG CAPSULE (FP) PO SCH ×2 (17:26→22:21)
[2019-01-29] MEDS: MELATONIN 5 MG TABLETS PO PRN (22:21)
[2019-01-29] MEDS: THIAMINE HCL 100 MG TABLET (FP) PO SCH (22:21)
[2019-01-30] MEDS ORDERED: chlordiazePOXIDE HCL 10 MG CAPSULE PO PRN
[2019-01-30] MEDS: GABAPENTIN 300 MG CAPSULE (FP) PO SCH ×3 (05:59→22:11)
[2019-01-30] MEDS: chlordiazePOXIDE HCL 10 MG CAPSULE PO SCH ×4 (05:59→22:11)
--- NOTE | 2019-01-30 09:44 | PN ---
S CIWA - CIWA Score Nausea/Vomitin-No Nausea/No Vomiting Muscle Tremors: 3 Anxiety: 2 Agitation: 2 Paroxysmal Sweats: 2 Orientation: 0-Oriented Tacttile Disturbances: 0-None Auditory Disturbances: 0-None Visual Disturbances: 0-None Headache: 0-None Present CIWA-Ar Total Score: 9 BHS Progress Note (SOAP) Subjective: shakes sweats Objective: 01/30/19 09:42 Vital Signs Temperature 97.7 F 01/30/19 09:13 Pulse Rate 117 H 01/30/19 09:13 Respiratory Rate 18 01/30/19 09:13 Blood Pressure 103/63 01/30/19 09:13 O2 Sat by Pulse Oximetry (%) Laboratory Tests 01/28/19 01/28/19 01/28/19 07:45 07:45 07:45 WBC 2.3 L RBC 3.86 L Hgb 13.4 Hct 39.8 MCV 103.2 H MCH 34.7 H MCHC 33.6 RDW 14.2 Plt Count 57 L D MPV 10.6 Sodium 135 L Potassium 4.0 Chloride 98 Carbon Dioxide 31 Anion Gap 6 L BUN 6.1 L Creatinine 0.6 Est GFR (CKD-EPI)AfAm 124.89 Est GFR (CKD-EPI)NonAf 107.76 Random Glucose 85 Calcium 9.1 Total Bilirubin 1.2 H AST 74 H ALT 46 Alkaline Phosphatase 105 Total Protein 6.8 Albumin 3.4 RPR Titer Nonreactive aaox3 ambulating no acute distress Assessment: 01/30/19 09:43 withdrawals Plan: continue detox
[2019-01-30] MEDS: PRENATAL VITAMINS W/ FOLIC ACID TABLET (FP) PO SCH (10:08)
[2019-01-30] MEDS: EMTRICITABINE 200MG/TENOFOVIR 300MG PO SCH (10:08)
[2019-01-30] MEDS: RITONAVIR 100 MG TABLET PO SCH (10:08)
[2019-01-30] MEDS: DARUNAVIR ETHANOLATE 800 MG TAB PO SCH (10:08)
[2019-01-30 11:08] LABS: PH,URINE 8.5 (5.0-8.0); URINE APPEARANCE CLEAR; URINE BILIRUBIN NEGATIVE (NEGATIVE); URINE COLOR DK YELLOW; URINE GLUCOSE (UA) NEGATIVE (NEGATIVE); URINE KETONE NEGATIVE (NEGATIVE); URINE LEUK ESTERASE NEGATIVE (NEGATIVE); URINE NITRITE NEGATIVE (NEGATIVE); URINE PROTEIN TRACE (NEGATIVE)
[2019-01-30] MEDS: THIAMINE HCL 100 MG TABLET (FP) PO SCH (22:11)
[2019-01-30] MEDS: MELATONIN 5 MG TABLETS PO PRN (23:01)
[2019-01-31] MEDS: chlordiazePOXIDE HCL 10 MG CAPSULE PO SCH ×2 (05:32→17:36)
[2019-01-31] MEDS: GABAPENTIN 300 MG CAPSULE (FP) PO SCH ×3 (05:32→22:14)
[2019-01-31] MEDS: RITONAVIR 100 MG TABLET PO SCH (10:33)
[2019-01-31] MEDS: EMTRICITABINE 200MG/TENOFOVIR 300MG PO SCH (10:33)
[2019-01-31] MEDS: PRENATAL VITAMINS W/ FOLIC ACID TABLET (FP) PO SCH (10:33)
[2019-01-31] MEDS: DARUNAVIR ETHANOLATE 800 MG TAB PO SCH (10:33)
--- NOTE | 2019-01-31 11:28 | PN ---
[facility] CIWA - CIWA Score Nausea/Vomitin-No Nausea/No Vomiting Muscle Tremors: None Anxiety: 2 Agitation: 0-Normal Activity Paroxysmal Sweats: 1-Minimal Palms Moist Orientation: 0-Oriented Tacttile Disturbances: 0-None Auditory Disturbances: 0-None Visual Disturbances: 0-None Headache: 1-Very Mild CIWA-Ar Total Score: 4 S Progress Note (SOAP) Subjective: c/o mild withdrawal symptoms. Objective: 01/31/19 11:26 Vital Signs 01/31/19 01/31/19 01/31/19 03:30 06:30 09:10 Temperature 96 F L 97.5 F L Pulse Rate 76 74 Respiratory 18 18 18 Rate Blood Pressure 98/63 95/65 Laboratory Last Values WBC 2.3 K/mm3 (4.0-10.0) L 01/28/19 07:45 RBC 3.86 M/mm3 (4.00-5.60) L 01/28/19 07:45 Hgb 13.4 GM/dL (11.7-16.9) 01/28/19 07:45 Hct 39.8 % (35.4-49) 01/28/19 07:45 MCV 103.2 fl (80-96) H 01/28/19 07:45 MCH 34.7 pg (25.7-33.7) H 01/28/19 07:45 MCHC 33.6 g/dl (32.0-35.9) 01/28/19 07:45 RDW 14.2 % (11.9-15.9) 01/28/19 07:45 Plt Count 57 K/MM3 (134-434) L D 01/28/19 07:45 MPV 10.6 fl (7.5-11.1) 01/28/19 07:45 Sodium 135 mmol/L (136-145) L 01/28/19 07:45 Potassium 4.0 mmol/L (3.5-5.1) 01/28/19 07:45 Chloride 98 mmol/L (98-107) 01/28/19 07:45 Carbon Dioxide 31 mmol/L (21-32) 01/28/19 07:45 Anion Gap 6 MMOL/L (8-16) L 01/28/19 07:45 BUN 6.1 mg/dL (7-18) L 01/28/19 07:45 Creatinine 0.6 mg/dL (0.55-1.3) 01/28/19 07:45 Est GFR (CKD-EPI)AfAm 124.89 01/28/19 07:45 Est GFR (CKD-EPI)NonAf 107.76 01/28/19 07:45 Random Glucose 85 mg/dL (74-106) 01/28/19 07:45 Calcium 9.1 mg/dL (8.5-10.1) 01/28/19 07:45 Total Bilirubin 1.2 mg/dL (0.2-1) H 01/28/19 07:45 AST 74 U/L (15-37) H 01/28/19 07:45 ALT 46 U/L (13-61) 01/28/19 07:45 Alkaline Phosphatase 105 U/L (45-117) 01/28/19 07:45 Total Protein 6.8 g/dl (6.4-8.2) 01/28/19 07:45 Albumin 3.4 g/dl (3.4-5.0) 01/28/19 07:45 Urine Color Dk yellow 01/29/19 15:56 Urine Appearance Clear 01/29/19 15:56 Urine pH 8.5 (5.0-8.0) H D 01/29/19 15:56 Ur Specific [place] 1.023 (1.010-1.035) 01/29/19 15:56 Urine Protein Trace (NEGATIVE) 01/29/19 15:56 Urine Glucose (UA) Negative (NEGATIVE) 01/29/19 15:56 Urine Ketones Negative (NEGATIVE) 01/29/19 15:56 Urine Blood Negative (NEGATIVE) 01/29/19 15:56 Urine Nitrite Negative (NEGATIVE) 01/29/19 15:56 Urine Bilirubin Negative (NEGATIVE) 01/29/19 15:56 Urine Urobilinogen 1.0 mg/dL (0.2-1.0) 01/29/19 15:56 Ur Leukocyte Esterase Negative (NEGATIVE) 01/29/19 15:56 RPR Titer Nonreactive (NONREACTIVE) 01/28/19 07:45 Labs noted. Assessment: AOX3, in no respiratory distress. Full ROM, ambulating in the unit. Mild Withdrawal symptoms. For d/c tomorrow. Plan: continue detox. D/C in AM.
[2019-01-31] MEDS: THIAMINE HCL 100 MG TABLET (FP) PO SCH (22:14)
[2019-01-31] MEDS: MELATONIN 5 MG TABLETS PO PRN (22:14)
[2019-02-01] MEDS ORDERED: chlordiazePOXIDE HCL 10 MG CAPSULE PO ONE (05:00)
[2019-02-01] MEDS: GABAPENTIN 300 MG CAPSULE (FP) PO SCH (05:53)
[2019-02-01 06:15] VITALS: BP 107/51; PULSE 76; TEMP 98.1
--- NOTE | 2019-02-01 08:16 | DS ---
[facility] Detox Discharge Summary Admission Date: 01/27/19 Discharge Date: 02/01/19 - History Present History: Alcohol Dependence, Sedative Dependence - Physical Exam Results Vital Signs: Vital Signs Temperature 98.1 F 02/01/19 04:00 Pulse Rate 76 02/01/19 04:00 Respiratory Rate 18 02/01/19 04:00 Blood Pressure 107/51 L 02/01/19 04:00 O2 Sat by Pulse Oximetry (%) Pertinent Admission Physical Exam Findings: Vital Signs Temperature 98.1 F 02/01/19 04:00 Pulse Rate 76 02/01/19 04:00 Respiratory Rate 18 02/01/19 04:00 Blood Pressure 107/51 L 02/01/19 04:00 O2 Sat by Pulse Oximetry (%) Laboratory Tests 01/28/19 01/28/19 01/28/19 07:45 07:45 07:45 WBC 2.3 L RBC 3.86 L Hgb 13.4 Hct 39.8 MCV 103.2 H MCH 34.7 H MCHC 33.6 RDW 14.2 Plt Count 57 L D MPV 10.6 Sodium 135 L Potassium 4.0 Chloride 98 Carbon Dioxide 31 Anion Gap 6 L BUN 6.1 L Creatinine 0.6 Est GFR (CKD-EPI)AfAm 124.89 Est GFR (CKD-EPI)NonAf 107.76 Random Glucose 85 Calcium 9.1 Total Bilirubin 1.2 H AST 74 H ALT 46 Alkaline Phosphatase 105 Total Protein 6.8 Albumin 3.4 Urine Color Urine Appearance Urine pH Ur Specific [place] Urine Protein Urine Glucose (UA) Urine Ketones Urine Blood Urine Nitrite Urine Bilirubin Urine Urobilinogen Ur Leukocyte Esterase RPR Titer Nonreactive 01/29/19 15:56 WBC RBC Hgb Hct MCV MCH MCHC RDW Plt Count MPV Sodium Potassium Chloride Carbon Dioxide Anion Gap BUN Creatinine Est GFR (CKD-EPI)AfAm Est GFR (CKD-EPI)NonAf Random Glucose Calcium Total Bilirubin AST ALT Alkaline Phosphatase Total Protein Albumin Urine Color Dk yellow Urine Appearance Clear Urine pH 8.5 H D Ur Specific [place] 1.023 Urine Protein Trace Urine Glucose (UA) Negative Urine Ketones Negative Urine Blood Negative Urine Nitrite Negative Urine Bilirubin Negative Urine Urobilinogen 1.0 Ur Leukocyte Esterase Negative RPR Titer aaox3 ambulating no acute distress - Treatment Hospital Course: Detox Protocol Followed, Detoxed Safely, Responded well, Discharged Condition Good, Rehab Referral Accepted Patient has Accepted a Rehab Referral to: pt [facility] - Medication Discharge Medications: Ambulatory Orders Ritonavir [Norvir] 100 mg PO DAILY 05/21/14 Dapsone - 100 mg PO DAILY #30 tablet 06/12/14 Darunavir Ethanolate [Prezista -] 800 mg PO DAILY #30 tablet 06/12/14 Emtricitabine/Tenofovir (Tdf) [Truvada 200 mg-300 mg Tablet] 1 each PO DAILY Gabapentin [Neurontin -] 300 mg PO Q8H 01/27/19 - Diagnosis (1) Alcohol-induced anxiety disorder Current Visit: Yes Status: Acute (2) Alcohol-induced sleep disorder Current Visit: Yes Status: Acute (3) Alcohol dependence with uncomplicated withdrawal Current Visit: Yes Status: Chronic (4) Benzodiazepine abuse, episodic Current Visit: Yes Status: Chronic (5) Bipolar II disorder Current Visit: No Status: Acute (6) Depression Current Visit: No Status: Acute (7) Alcohol dependence Current Visit: No Status: Chronic (8) Alcohol-induced mood disorder Current Visit: No Status: Chronic (9) H/O basal cell carcinoma excision Current Visit: No Status: Chronic (10) HIV (human immunodeficiency virus infection) Current Visit: No Status: Chronic (11) Drug-induced mood disorder Current Visit: No Status: Suspected - AMA Did Patient Leave Against Medical Advice: No
== END 2019-02-01 09:05 | disposition home or self-care (01) | DRG 897 ==
LOC: YASAS 11:02 → Y6N 13:56
PROVIDERS: ADMIT Allergy & Immunology; ATTEND Allergy & Immunology
PROC: HZ2ZZZZ Detoxification Services for Substance Abuse Treatment (ICD-10-PCS; principal; 2019-01-27)
DX: F10.230 Alcohol dependence with withdrawal, uncomplicated (principal); F13.20 Sedative, hypnotic or anxiolytic dependence, uncomplicated; F31.81 Bipolar II disorder; F19.24 Other psychoactive substance dependence with psychoactive substance-induced mood disorder; F10.24 Alcohol dependence with alcohol-induced mood disorder; F10.282 Alcohol dependence with alcohol-induced sleep disorder; F10.280 Alcohol dependence with alcohol-induced anxiety disorder; Z21 Asymptomatic human immunodeficiency virus [HIV] infection status; E86.0 Dehydration; R63.4 Abnormal weight loss; Z68.20 Body mass index [BMI] 20.0-20.9, adult
CPT/HCPCS: 36415; 80053; 81003; 85027; 86593